=== PATIENT | male | born 1985 | race Caucasian/White ===

== ENCOUNTER 2017-09-30 16:32 | Inpatient (IN) | payer BC ==
[2017-09-30] MEDS ORDERED: guaiFENesin/Dextromethorphan 100-10 MG/5 ML Soln 5 ML Cup PO PRN (17:01)
[2017-09-30] MEDS ORDERED: Cyclobenzaprine 10 MG Tab PO PRN (17:09)
[2017-09-30] MEDS ORDERED: Labetalol 100 MG/20 ML MDV IVPUSH PRN (17:10)
[2017-09-30] MEDS ORDERED: Diclofenac Sodium 1% Gel 100 GM Tube TOP PRN (17:14)
[2017-09-30] MEDS: Dextrose 5%-0.45% NaCl 1,000 ML IV SCH (17:22)
[2017-09-30] MEDS ORDERED: Levofloxacin/Dextrose 5%-Water 100 ML IV ONE (17:28)
[2017-09-30] MEDS ORDERED: Premix Bag 1 BAG ONE (17:28)
[2017-09-30] MEDS ORDERED: Levofloxacin/Dextrose 5%-Water 50 ML IV SCH (17:30)
[2017-09-30 17:59] LABS: CHLORIDE,CL 98 mmol/L (98-115); SODIUM,NA 135 mmol/L (136-145)
[2017-09-30] MEDS: Albuterol/Ipratropium 3.0-0.5 MG/3 ML Neb Soln NEB SCH ×2 (18:01→22:32)
[2017-09-30] MEDS: Ibuprofen 600 MG Tab PO PRN (18:12)
[2017-09-30] MEDS ORDERED: Levofloxacin/Dextrose 5%-Water 100 ML IV SCH (18:30)
[2017-09-30] MEDS: Acetaminophen 325 MG Tab PO PRN (22:58)
[2017-10-01] MEDS: Albuterol/Ipratropium 3.0-0.5 MG/3 ML Neb Soln NEB SCH ×2 (05:54→10:31)
[2017-10-01] MEDS: Ibuprofen 600 MG Tab PO PRN (06:12)
[2017-10-01 07:51] LABS: CHLORIDE,CL 99 mmol/L (98-115); SODIUM,NA 136 mmol/L (136-145)
[2017-10-01] MEDS: Dextrose 5%-0.45% NaCl 1,000 ML IV SCH (08:39)
[2017-10-01] MEDS ORDERED: cefTRIAXone 1 GM Vial IVPUSH SCH (10:15)
[2017-10-01] MEDS: Acetaminophen 325 MG Tab PO PRN (10:55)
[2017-10-01] MEDS ORDERED: Omeprazole 20 MG Cap.CR PO SCH (11:30)
[2017-10-01] MEDS ORDERED: predniSONE 20 MG Tab PO SCH (12:00)
[2017-10-01] MEDS ORDERED: Iopamidol 612 MG/ML 75 ML Bottle IV PRN (12:07)
[2017-10-01] MEDS ORDERED: Azithromycin 500 MG in Sodium Chloride 0.9% 250 ML IV SCH (12:30)
[2017-10-01] MEDS ORDERED: Sodium Chloride 0.9% 50 ML IV SCH (12:45)
[2017-10-01] MEDS ORDERED: Dextrose 5%-0.45% NaCl 1,000 ML IV SCH (13:15)
--- NOTE | 2017-10-01 15:30 | PCM.DCSUM1 ---
Discharge Summary - Hospital Course Brief History: Patient was admitted by [facility] provider yesterday due to fever, shortness of breath and appeared to be pneumonia. Been having shortness of breath and fever for about a week. Elevated white count yesterday in the clinic. He is admitted for IV antibiotics and further monitoring. He was evaluated yesterday [facility] with concerns about right back pain with fever and shortness of breath. He states that he was in a hotel last weekend with his and daughter in [place], [place] and when he woke up the next morning he had back pain. Went to a chiropractor however ongoing back pain. Over the course of the week he started running a fever with subsequent shortness of breath, he was evaluated in ED September 28 in [place]. He states that he told them that his right middle back was hurting and that he was short of breath with a fever. He states he was given Flexeril and released home. He has a cough that's been productive. Fevers at home up to 102. Quit smoking a proximal one month ago. Chest x-ray [facility] concerning for possible pleural effusion and/or consolidation. Significant inflammatory marker elevation - Discharge Data Discharge Date: 10/01/17 Discharge Disposition: DC/Tfer to Acute Hospital 02 Condition: Serious - Discharge Plan Home Medications: Home Meds Cyclobenzaprine [Flexeril] 10 mg PO TID PRN 09/30/17 [History] Ibuprofen [Advil] 200 - 600 mg PO QID 09/30/17 [History] Forms: Interfacility Transfer EMTALA - Discharge Summary/Plan Comment DC Time >30 min.: Yes Discharge Summary/Plan Comment: Due to the patient's ongoing pulmonary status, CT consistent with empyema, fever or elevated white count along with physical exam with very poor inspiratory homier excursion will transfer patient to a higher echelon of care [facility] via ambulance Cardiothoracic along with hospitalist accepting. Patient may need decortication Final diagnosis empyema Pneumonia - General Info Functional Status: Reports: Pain Controlled, Tolerating Diet, New Symptoms ( Back pain and cough) - Review of Systems General: Reports: Fever HEENT: Reports: No Symptoms Pulmonary: Reports: Shortness of Breath, Pleuritic Chest Pain, Cough, Sputum. Denies: Wheezing Cardiovascular: Reports: Chest Pain, Dyspnea on Exertion. Denies: Edema Gastrointestinal: Reports: No Symptoms Genitourinary: Reports: No Symptoms Musculoskeletal: Reports: No Symptoms Skin: Reports: No Symptoms Neurological: Reports: No Symptoms Psychiatric: Reports: No Symptoms - Patient Data Vitals - Most Recent: Last Vital Signs Temp 99.1 F 10/01/17 14:16 Pulse 119 H 10/01/17 13:25 Resp 20 10/01/17 13:25 BP 139/81 10/01/17 13:25 Pulse Ox 95 10/01/17 13:30 Weight - Most Recent: 235 lb I&O - Last 24 hours: Intake & Output 10/01/17 10/01/17 10/01/17 06:59 14:59 22:59 Intake Total 1306 Output Total 1200 Balance 106 Lab Results - Last 24 hrs: Laboratory Results - last 24 hr 09/30/17 09/30/17 10/01/17 Range/Units 17:20 17:20 07:05 WBC 24.3 H 26.3 H (5.0-10.0) 10^3/uL RBC 3.88 L 3.78 L (4.50-6.00) 10^6/uL Hgb 11.9 L 11.1 L (13.0-17.0) g/dL Hct 34.5 L 33.9 L (40.0-52.0) % MCV 88.8 89.6 (82.0-92.0) fL MCH 30.6 29.4 (27.0-31.0) pg MCHC 34.5 32.8 (32.0-36.0) g/dL RDW 13.2 13.6 (11.5-14.5) % Plt Count 570 H 629 H (150-300) 10^3/uL MPV 6.6 L 6.6 L (7.4-10.4) fL Neut % (Auto) 87.7 H 89.0 H (50.0-70.0) % Lymph % (Auto) 5.3 L 3.5 L (20.0-40.0) % Banner % (Auto) 6.8 7.4 (2.0-8.0) % Eos % (Auto) 0.1 L 0.1 L (1.0-3.0) % Baso % (Auto) 0.1 0.0 (0.0-1.0) % Neut # (Auto) 21.3 H 23.5 H (2.5-7.0) 10^3/uL Lymph # (Auto) 1.3 0.9 L (1.0-4.0) 10^3/uL Banner # (Auto) 1.7 H 1.9 H (0.1-0.8) 10^3/uL Eos # (Auto) 0.0 L 0.0 L (0.1-0.3) 10^3/uL Baso # (Auto) 0.0 0.0 (0.0-0.1) 10^3/uL Sodium 135 L (136-145) mmol/L Potassium 3.7 (3.3-5.3) mmol/L Chloride 98 (98-115) mmol/L Carbon Dioxide 24.1 (21.0-32.0) mmol/L BUN 12 (6-25) mg/dL Creatinine 0.80 (0.51-1.17) mg/dL Est Cr Clr Drug Dosing 148.43 mL/min Estimated GFR (MDRD) > 60 mL/min Glucose 96 (70-110) mg/dL Calcium 8.5 L (8.7-10.3) mg/dL Total Bilirubin 1.4 H (0.2-1.0) mg/dL AST 36 (15-37) U/L ALT 51 (12-78) U/L Alkaline Phosphatase 111 (46-116) IU/L Total Protein 7.4 (6.4-8.2) g/dL Albumin 2.31 L (3.00-4.80) g/dL 10/01/17 Range/Units 07:05 WBC (5.0-10.0) 10^3/uL RBC (4.50-6.00) 10^6/uL Hgb (13.0-17.0) g/dL Hct (40.0-52.0) % MCV (82.0-92.0) fL MCH (27.0-31.0) pg MCHC (32.0-36.0) g/dL RDW (11.5-14.5) % Plt Count (150-300) 10^3/uL MPV (7.4-10.4) fL Neut % (Auto) (50.0-70.0) % Lymph % (Auto) (20.0-40.0) % Banner % (Auto) (2.0-8.0) % Eos % (Auto) (1.0-3.0) % Baso % (Auto) (0.0-1.0) % Neut # (Auto) (2.5-7.0) 10^3/uL Lymph # (Auto) (1.0-4.0) 10^3/uL Banner # (Auto) (0.1-0.8) 10^3/uL Eos # (Auto) (0.1-0.3) 10^3/uL Baso # (Auto) (0.0-0.1) 10^3/uL Sodium 136 (136-145) mmol/L Potassium 3.8 (3.3-5.3) mmol/L Chloride 99 (98-115) mmol/L Carbon Dioxide 24.0 (21.0-32.0) mmol/L BUN 12 (6-25) mg/dL Creatinine 0.84 (0.51-1.17) mg/dL Est Cr Clr Drug Dosing 141.36 mL/min Estimated GFR (MDRD) > 60 mL/min Glucose 141 H (70-110) mg/dL Calcium 8.4 L (8.7-10.3) mg/dL Total Bilirubin 1.5 H (0.2-1.0) mg/dL AST 29 (15-37) U/L ALT 42 (12-78) U/L Alkaline Phosphatase 106 (46-116) IU/L Total Protein 6.8 (6.4-8.2) g/dL Albumin 2.00 L (3.00-4.80) g/dL Med Orders - Current: Current Medications Acetaminophen (Tylenol) 325 - 650 mg PO Q4H PRN PRN Reason: Fever Last Admin: 10/01/17 10:55 Dose: 650 mg Albuterol/Ipratropium (Duoneb 3.0-0.5 Mg/3 Ml) 3 ml NEB Q6HRRT YASMIN Last Admin: 10/01/17 10:31 Dose: 3 ml Cyclobenzaprine HCl (Flexeril) 10 mg PO TID PRN PRN Reason: muscle spasm Last Admin: 09/30/17 22:36 Dose: 10 mg Diclofenac Sodium (Voltaren 1% Gel) 0 gm TOP QID PRN PRN Reason: Pain (mild 1-3) Last Admin: 09/30/17 22:36 Dose: 1 applic Azithromycin 500 mg/ Sodium (Chloride) 250 mls @ 250 mls/hr IV Q24H [facility] Last Admin: 10/01/17 12:35 Dose: 250 mls/hr Levofloxacin/Dextrose (Levaquin In D5w 250 Mg/50 Ml) 50 mls @ 50 mls/hr IV Q24H YAS[facility] Levofloxacin/Dextrose (Levaquin In D5w 500 Mg/100 Ml) 100 mls @ 100 mls/hr IV Q24H [facility] Vancomycin HCl 1.5 gm/ Sodium (Chloride) 280 mls @ 112 mls/hr IV ONETIME ONE Stop: 10/01/17 16:29 Last Admin: 10/01/17 14:05 Dose: 112 mls/hr Dextrose/Sodium Chloride (Dextrose 5%-1/2 Ns) 1,000 mls @ 150 mls/hr IV ASDIRECTED [facility] Last Admin: 10/01/17 14:03 Dose: 150 mls/hr Ibuprofen (Motrin) 600 mg PO Q6H PRN PRN Reason: FEVER Last Admin: 10/01/17 06:12 Dose: 600 mg Labetalol HCl (Normodyne) 20 mg IVPUSH Q4H PRN; Protocol PRN Reason: Hypertension Omeprazole (Omeprazole) 20 mg PO ACBREAKFAST [facility] Last Admin: 10/01/17 12:35 Dose: 20 mg Prednisone (Prednisone) 60 mg PO WITHBREAKFAST [facility] Last Admin: 10/01/17 12:35 Dose: 60 mg Vancomycin HCl (Pharmacy To Dose - Vancomycin) 1 dose .XX ASDIRECTED [facility] Discontinued Medications Ceftriaxone Sodium (Rocephin) 1 gm IVPUSH Q24H [facility] Guaifenesin/Phenylephrine HCl (Robitussin Dm) 10 ml PO Q4H PRN PRN Reason: Cough Dextrose/Sodium Chloride (Dextrose 5%-1/2 Ns) 1,000 mls @ 75 mls/hr IV ASDIRECTED [facility] Last Admin: 10/01/17 08:39 Dose: 75 mls/hr Levofloxacin/Dextrose (Levaquin In D5w 250 Mg/50 Ml) 50 mls @ 50 mls/hr IV Q24H [facility] Last Admin: 09/30/17 20:35 Dose: 50 mls/hr Levofloxacin/Dextrose (Levaquin In D5w 500 Mg/100 Ml) 100 mls @ 100 mls/hr IV Q24H [facility] Last Admin: 09/30/17 17:30 Dose: 100 mls/hr Levofloxacin/Dextrose (Levaquin In D5w 500 Mg/100 Ml) Confirm Administered Dose 100 mls @ as directed IV .STK-MED ONE Stop: 09/30/17 17:29 Last Admin: 09/30/17 18:33 Dose: Not Given Premix (Premix Bag) Confirm Administered Dose 1 mls @ as directed .ROUTE .STK- MED ONE Stop: 09/30/17 17:29 Last Admin: 09/30/17 18:33 Dose: Not Given Sodium Chloride (Normal Saline) 50 mls @ 3 mls/sec IV ASDIRECTED [facility] Stop: 10/01/17 14:00 Iopamidol (Isovue-300 (61%)) 75 ml IV . DIRECTED PRN PRN Reason: FOR RADIOLOGY EXAM Stop: 10/01/17 14:00 Last Admin: 10/01/17 12:32 Dose: 75 ml - Exam Quality Assessment: Reports: Supplemental Oxygen General: Reports: Alert, Oriented, Mild Distress Neck: Reports: No JVD Lungs: Reports: Decreased Breath Sounds, Other (Decreased pulmonary excursion on inspiration right lung allen, no hyperresonance, completely dull right total allen) Cardiovascular: Reports: Tachycardia GI/Abdominal Exam: Normal Bowel Sounds, Soft, Non-Tender, No Organomegaly, No Distention, No Abnormal Bruit, No Mass, Pelvis Stable (Male) Exam: Deferred Back Exam: Denies: CVA Tenderness (L), CVA Tenderness (R) Extremities: No Pedal Edema Skin: Reports: Warm, Dry, Intact Psy/Mental Status: Reports: Alert, Normal Affect, Normal Mood
[2017-10-01] MEDS ORDERED: Levofloxacin/Dextrose 5%-Water 50 ML IV SCH (17:00)
[2017-10-01] MEDS ORDERED: Levofloxacin/Dextrose 5%-Water 100 ML IV SCH (18:00)
== END 2017-10-01 14:30 | DRG 139 ==
LOC: KA.MS 16:49 → UNDODISIN 10-01 14:30
PROVIDERS: ADMIT Physician Assistant; ATTEND Family Medicine
DX: J18.9 Pneumonia, unspecified organism (principal); J43.9 Emphysema, unspecified; M54.9 Dorsalgia, unspecified; R53.1 Weakness; E66.9 Obesity, unspecified; Z68.32 Body mass index [BMI] 32.0-32.9, adult; Z88.0 Allergy status to penicillin; Z87.891 Personal history of nicotine dependence
CPT/HCPCS: 36415; 71260; 80053; 85025; 87040; 87070; 87205; 94640; A9270-GY; J0456; J1956; J3370; J7042; J7050; Q9967

== ENCOUNTER 2019-04-11 18:20 | Emergency (ER) | payer BC ==
[2019-04-11] MEDS ORDERED: Acetaminophen/HYDROcodone 325-10 MG Tab PO PRN (19:12)
[2019-04-11] MEDS ORDERED: Clindamycin HCl 150 MG Cap PO ONE (19:12)
--- NOTE | 2019-04-11 19:12 | EDM.PDOC ---
ED HPI GENERAL MEDICAL PROBLEM - General Chief Complaint: General Stated Complaint: TOOTH ABSCESS Time Seen by Provider: 04/11/19 19:02 Source of Information: Reports: Patient History Limitations: Reports: No Limitations - History of Present Illness INITIAL COMMENTS - FREE TEXT/NARRATIVE: 34 YO WM presents to ER complaining of right upper molar abscess. Pt with history of dental abscess and root canal in the past. Pt reports swelling with mild discomfort x 2 days. Pt denies fever/chills, no trismus, no dysphagia. Duration: Day(s): (2) Location: Reports: Other (dental) Quality: Reports: Ache Severity: Mild Improves with: Reports: None Worsens with: Reports: None Treatments LIVE HANGER: Reports: Acetaminophen, NSAIDS, Other (see below) Other Treatments LIVE HANGER: ora jel, warm salt water rinses Right Upper Tooth/Teeth Pain Score (Numeric/FACES): 8 - Related Data Allergies Allergy/AdvReac Type Severity Reaction Status Date / Time Penicillins Allergy Hives Verified 04/11/19 18:45 Home Meds: Home Meds Ibuprofen [Advil] 200 - 600 mg PO QID 09/30/17 [History] Clindamycin HCl 300 mg PO Q8HR #15 capsule 04/11/19 [Rx] Past Medical History HEENT History: Reports: None Respiratory History: Reports: Asthma, Sleep Apnea, Other (See Below) Other Respiratory History: pat. had problems with Asthma from 8-10 years, Gastrointestinal History: Reports: None Genitourinary History: Reports: None Musculoskeletal History: Reports: Fracture, Other (See Below) Other Musculoskeletal History: fx. collarbone, fx. right wrist Neurological History: Reports: Concussion Psychiatric History: Reports: None Endocrine/Metabolic History: Reports: Obesity/BMI 30+ Hematologic History: Reports: None Immunologic History: Reports: None Oncologic (Cancer) History: Reports: None Dermatologic History: Reports: None - Infectious Disease History Infectious Disease History: Reports: Chicken Pox - Past Surgical History HEENT Surgical History: Reports: Oral Surgery Respiratory Surgical History: Reports: Other (See Below) Other Respiratory Surgeries/Procedures: impiema in right lung. GI Surgical History: Reports: None Male Surgical History: Reports: None Endocrine Surgical History: Reports: None Neurological Surgical History: Reports: None Musculoskeletal Surgical History: Reports: None Oncologic Surgical History: Reports: None Dermatological Surgical History: Reports: None Social & Family History - Family History Family Medical History: Noncontributory - Tobacco Use Smoking Status *Q: Former Smoker Used Tobacco, but Quit: Yes Month/Year Tobacco Last Used: quit august 2017 - Caffeine Use Caffeine Use: Reports: Coffee, Soda - Alcohol Use Days Per Week of Alcohol Use: 1 Number of Drinks Per Day: 4 Total Drinks Per Week: 4 - Recreational Drug Use Recreational Drug Use: No ED ROS GENERAL - Review of Systems Review Of Systems: See Below Constitutional: Reports: No Symptoms HEENT: Reports: Dental Pain Respiratory: Reports: No Symptoms Cardiovascular: Reports: No Symptoms Endocrine: Reports: No Symptoms GI/Abdominal: Reports: No Symptoms : Reports: No Symptoms Musculoskeletal: Reports: No Symptoms Skin: Reports: No Symptoms Neurological: Reports: No Symptoms Psychiatric: Reports: No Symptoms Hematologic/Lymphatic: Reports: No Symptoms Immunologic: Reports: No Symptoms ED EXAM, GENERAL - Physical Exam Exam: See Below Exam Limited By: No Limitations General Appearance: Alert, WD/WN, No Apparent Distress Ears: Normal External Exam, Normal Canal, Hearing Grossly Normal, Normal TMs Nose: Normal Inspection, Normal Mucosa, No Blood Throat/Mouth: Normal Lips, Normal Teeth, Normal Voice, No Airway Compromise, Inflammation. No: Dysphagia, Perioral Cyanosis Head: Atraumatic, Normocephalic Neck: Normal Inspection, Supple, Non-Tender, Full Range of Motion Respiratory/Chest: No Respiratory Distress, Lungs Clear, Normal Breath Sounds, No Accessory Muscle Use, Chest Non-Tender Cardiovascular: Normal Peripheral Pulses, Regular Rate, Rhythm, No Edema, No Gallop, No JVD, No Murmur, No Rub GI/Abdominal: Normal Bowel Sounds, Soft, Non-Tender, No Organomegaly, No Distention, No Abnormal Bruit, No Mass Back Exam: Normal Inspection, Full Range of Motion, NT Extremities: Normal Inspection, Normal Range of Motion, Non-Tender, Normal Capillary Refill, No Pedal Edema Neurological: Alert, Oriented, CN II-XII Intact, Normal Cognition, Normal Gait, Normal Reflexes, No Motor/Sensory Deficits Psychiatric: Normal Affect, Normal Mood Skin Exam: Warm, Dry, Intact, Normal Color, No Rash Lymphatic: No Adenopathy Course - Vital Signs Last Recorded V/S: Last Vital Signs Temp 36.3 C 04/11/19 18:37 Pulse 74 10/19/19 18:37 Resp 20 04/11/19 18:37 BP 191/114 H 04/11/19 18:37 Pulse Ox 93 L 04/11/19 18:37 Departure - Departure Time of Disposition: 19:22 Disposition: Home, Self-Care 01 Condition: Good Clinical Impression: Dental abscess - Discharge Information Prescriptions: Clindamycin HCl 300 mg PO Q8HR #15 capsule Instructions: Dental Abscess Referrals: Dedrick Quick PA-C [Primary Care Provider] - Additional Instructions: 1. discharge home 2. clindamycin 300mg every 8 hours x 10 days 3. hydrocodone 10/325 #6 1 every 8 hours as needed 4. motrin 600mg every 6 hours as needed for pain 5. follow up with dentist this week for further evaluation and treatment 6. return to ER for worsening symptoms - Assessment/Plan Assessment:: 1. dental abscess Plan: 1. discharge home 2. clindamycin 300mg every 8 hours x 10 days 3. hydrocodone 10/325 #6 1 every 8 hours as needed 4. motrin 600mg every 6 hours as needed for pain 5. follow up with dentist this week for further evaluation and treatment 6. return to ER for worsening symptoms
== END 2019-04-11 21:25 | disposition home or self-care (01) ==
LOC: KA.ED 18:20
DX: K04.7 Periapical abscess without sinus (principal); E66.9 Obesity, unspecified; Z68.31 Body mass index [BMI] 31.0-31.9, adult; Z87.891 Personal history of nicotine dependence; Z88.0 Allergy status to penicillin
CPT/HCPCS: 99282; A9270

== ENCOUNTER 2020-08-16 15:04 | Observation (INO) | payer BC ==
[2020-08-16] MEDS ORDERED: Acetaminophen 325 MG Tab PO PRN (15:44)
[2020-08-16] MEDS ORDERED: Sodium Chloride 0.9% 10 ML Syringe FLUSH PRN (15:44)
[2020-08-16] MEDS ORDERED: Metoprolol Tartrate 5 MG/5 ML SDV IVPUSH PRN (15:44)
[2020-08-16] MEDS ORDERED: Lidocaine 2% 100 MG/5 ML Syringe IVPUSH PRN (16:16)
[2020-08-16] MEDS ORDERED: Atropine 0.1 MG/ML 10 ML Syringe IVPUSH PRN (16:16)
[2020-08-16] MEDS ORDERED: Nitroglycerin 0.4 MG Tab.SL SL PRN (16:16)
[2020-08-16] MEDS ORDERED: EPINEPHrine 1:10,000 1 MG/10 ML Syringe IVPUSH PRN (16:16)
[2020-08-16] MEDS: Lisinopril 10 MG Tab PO SCH (16:29)
[2020-08-16] MEDS: Hydrochlorothiazide 12.5 MG Cap PO SCH (16:30)
[2020-08-17 07:39] LABS: ANION GAP 12.1 mmol/L (5-15)
[2020-08-17] MEDS: Lisinopril 10 MG Tab PO SCH (08:19)
[2020-08-17] MEDS: Hydrochlorothiazide 12.5 MG Cap PO SCH (08:20)
--- NOTE | 2020-08-17 11:12 | PCM.DCSUM1 ---
Discharge Summary - Hospital Course Diagnosis: Stroke: No - Discharge Data Discharge Date: 08/17/20 Discharge Disposition: Home, Self-Care 01 Condition: Good - Referral to Home Health Primary Care Physician: Isela Flores NP - Patient Instructions Diet: Low Sodium Diet, Other: DASH diet Driving: May Drive Today Showering/Bathing: May Shower Notify Provider of: Nausea and/or Vomiting Other/Special Instructions: Take your hydrochlorothiazide in the morning. Limit Ibuprofen this could be causing your blood pressure to be elevated. Limit salt additions to food. DASH Diet. Home blood pressure monitoring. Monitor blood pressure once or twice a day, bring readings to follow-ups. Call if blood pressure greater than 150/90 - Discharge Plan *PRESCRIPTION DRUG MONITORING PROGRAM REVIEWED*: Not Applicable *COPY OF PRESCRIPTION DRUG MONITORING REPORT IN PATIENT TEJA: Not Applicable Prescriptions/Med Rec: hydroCHLOROthiazide [Hydrochlorothiazide] 12.5 mg PO DAILY #14 cap Home Medications: Home Meds Acetaminophen 500 mg PO Q4HR PRN 08/16/20 [History] Chlorpheniramine Maleate [Allergy 4-Hour] 4 mg PO ASDIRECTED 08/16/20 [History] hydroCHLOROthiazide [Hydrochlorothiazide] 12.5 mg PO DAILY #14 cap 08/17/20 [Rx] Referrals: Aleksey Rashid NP [Nurse Practitioner] - 08/22/20 1:00 pm (Bring Blood Pressure Readings) - Discharge Summary/Plan Comment DC Time >30 min.: Yes Discharge Summary/Plan Comment: Final diagnosis --Hypertension, possible situational stress/anxiety related --Obesity, contributory --Hyperlipidemia, Non-HDL cholesterol 178 --TRISTAN, compliant on CPAP History summary Gino is a 35yr old male patient who was admitted into overnight op status due to hypertension. Patient presented to an [facility] and was evaluated when he came in feeling at he is feeling "weird, with subjective symptoms such as "feeling of water in the head and kind of out of it." He felt like "something isn't right." He reportedly "can't settle down." He reports he wasn't sure if it was blood pressure or anxiety or both. States he has been in his own head a lot lately. He uses CPAP everynight for TRISTAN. Denied end-organ symptoms such as visual changes, headache, dizziness or lightheadedness. Family history includes grandfather and/uncles with HTN. 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 Clinical workup included ECG, slightly inverted T-waves III/recipical aVF Negative troponin Non-concerning electrolytes UA, no protein TSH normal range Hospital course Upon arrival patient was placed in telemetry status, he was placed on 10 mg PURA inhibitor along with ACT C 12.5 mg along with metoprolol 5 mg IV push as needed for any specific hypertension parameters in which he did not require. He used his CPAP. His blood pressure quickly normalized and even well below acceptable thresholds. He did have ongoing back pain however admits to this being chronic in nature. His cardiac workup was non-concerning with normal cardio biomarkers. Medication changes/adjustments upon discharge --HCTZ 12.5 mg by mouth daily (newly added) --Discontinue ibuprofen, likely contributable to BP, hypervolemic state Disposition/overall plan --Patient will be discharged to OBS status, he is stable and deemed ready --Lifestyle modification, weight loss, exercise, stress reduction, --With proper diet and exercise and stress reduction may not need blood pressure medication going forward --DASH diet --Home blood pressure monitoring, calling/notifying parameters given --Follow-up appointment, likely will need back pain workup - General Info Functional Status: Reports: Pain Controlled, Other (chronic back pain). Denies: New Symptoms - Review of Systems General: Reports: No Symptoms HEENT: Reports: No Symptoms Pulmonary: Reports: No Symptoms Cardiovascular: Reports: No Symptoms Gastrointestinal: Reports: No Symptoms Psychiatric: Reports: Anxiety (Admikts to work related stressors/anxiety) - Patient Data Vitals - Most Recent: Last Vital Signs Temp 96.8 F L 08/17/20 06:55 Pulse 76 08/17/20 06:55 Resp 16 08/17/20 06:55 BP 125/76 08/17/20 08:19 Pulse Ox 98 08/17/20 06:55 Weight - Most Recent: 246 lb 2 oz I&O - Last 24 hours: Intake & Output 08/16/20 08/17/20 08/17/20 22:59 06:59 14:59 Intake Total 600 50 Balance 600 50 Lab Results - Last 24 hrs: Laboratory Results - last 24 hr 08/16/20 08/17/20 Range/Units 20:56 07:10 Sodium 136 (136-145) mmol/L Potassium 3.9 (3.5-5.1) mmol/L Chloride 100 (98-107) mmol/L Carbon Dioxide 27.8 (21.0-32.0) mmol/L Anion Gap 12.1 (5-15) mmol/L BUN 17 (7-18) mg/dL Creatinine 1.45 H (0.51-1.17) mg/dL Est Cr Clr Drug Dosing 79.59 mL/min Estimated GFR (MDRD) 55 mL/min Glucose 119 (70-140) mg/dL Calcium 9.0 (8.7-10.3) mg/dL Magnesium 2.1 (1.8-2.4) mg/dL Total Bilirubin 0.8 (0.2-1.0) mg/dL AST 33 (15-37) U/L ALT 101 H (14-63) U/L Alkaline Phosphatase 76 (46-116) U/L Troponin I < 0.017 (0.000-0.056) ng/mL Total Protein 7.5 (6.4-8.2) g/dL Albumin 3.84 (3.40-5.00) g/dL Med Orders - Current: Current Medications Discontinued Medications Acetaminophen (Tylenol) 650 mg PO Q4H PRN PRN Reason: Pain (Mild 1-3)/fever Atropine Sulfate (Atropine 0.1 Mg/Ml) 0 mg IVPUSH ASDIRECTED PRN PRN Reason: Heart. Epinephrine HCl (Epinephrine 1:10,000) 1 mg IVPUSH ASDIRECTED PRN PRN Reason: Heart. Hydrochlorothiazide (Hydrochlorothiazide) 12.5 mg PO DAILY [facility] Last Admin: 08/17/20 08:20 Dose: 12.5 mg Documented by: Lidocaine HCl (Xylocaine 2%) 0 mg IVPUSH ASDIRECTED PRN PRN Reason: Heart. Lisinopril (Prinivil) 10 mg PO DAILY [facility] Last Admin: 08/17/20 08:19 Dose: 10 mg Documented by: Metoprolol Tartrate (Lopressor) 5 mg IVPUSH Q4H PRN PRN Reason: Hypertension Nitroglycerin (Nitrostat) 0.4 mg SL ASDIRECTED PRN PRN Reason: Heart. Sodium Chloride (Saline Flush) 10 ml FLUSH Q8HR PRN PRN Reason: keep vein open - Exam Quality Assessment: Denies: Supplemental Oxygen General: Reports: Alert, Oriented, Cooperative, No Acute Distress Lungs: Reports: Clear to Auscultation, Normal Respiratory Effort Cardiovascular: Reports: Regular Rate, Regular Rhythm Psy/Mental Status: Reports: Alert, Normal Affect, Normal Mood. Denies: Anxious
== END 2020-08-17 10:00 | disposition home or self-care (01) ==
LOC: KA.MS 15:44
PROVIDERS: ADMIT Nurse Practitioner Family; ATTEND Nurse Practitioner Family
DX: I10 Essential (primary) hypertension (principal); E66.9 Obesity, unspecified; G47.33 Obstructive sleep apnea (adult) (pediatric); Z98.890 Other specified postprocedural states; Z87.891 Personal history of nicotine dependence; Z20.822 Contact with and (suspected) exposure to COVID-19; Z79.899 Other long term (current) drug therapy; Z88.0 Allergy status to penicillin; Z68.33 Body mass index [BMI] 33.0-33.9, adult
CPT/HCPCS: 36415; 80053; 83735; 84484; A9270-GY; G0378